=== PATIENT | female | born 1955 | race Caucasian/White ===

== ENCOUNTER 2016-08-11 19:57 | Emergency (ER) | payer OTHER ==
--- NOTE | 2016-08-11 20:07 | ED ORDER SUMMARY ---
..... Patient: DAWNA FRAUSTO OrderSheet [facility] VisitID: [id number] [place] [address] 60y, F Registration Date/Time: 08/11/2016 ORDER SHEET Weight: 52.1 kg (stated) Allergies: Codeine GENERAL ORDERS: CBC w Diff Urgent (20:09 08/11/2016 EKoroleva P.A.-C) (20:09 HSoule) MEDICATION ORDERS: Glucagon IV 1 mg (NOW) (20:04 08/11/2016 EKoroleva P.A.-C) (Ack 20:09 HSoule) (20:16 HSoule) IV FLUIDS: IV NS : initial bolus 1000 mL (1000 mL/hr), then 10 mL/hr for X1 (NOW); Manjeet (20:04 08/11/2016 EKoroleva P.A.-C) (Ack 20:09 HSoule) (20:16 HSoule) Zofran IV 4 mg (NOW) (20:16 08/11/2016 EKoroleva P.A.-C) (Ack 20:17 HSoule) (20:22 Pamela R.N.) ORDER SHEET NOTES: [Electronically signed by Brianna Stoll P.A.-C (20:25 08/11/2016)] [Electronically signed by Enzo Rehman R.N. (20:38 08/11/2016)] [Electronically locked/signed by Enzo Rehman R.N. (20:38 08/11/2016)]
--- NOTE | 2016-08-11 20:07 | ED ORDER SUMMARY ---
..... Patient: DAWNA FRAUSTO OrderSheet [facility] VisitID: [id number] [place] [address] 60y, F Registration Date/Time: 08/11/2016 ORDER SHEET Weight: 52.1 kg (stated) Allergies: Codeine GENERAL ORDERS: CBC w Diff Urgent (20:09 08/11/2016 EKoroleva P.A.-C) (20:09 HSoule) MEDICATION ORDERS: Glucagon IV 1 mg (NOW) (20:04 08/11/2016 EKoroleva P.A.-C) (Ack 20:09 HSoule) (20:16 HSoule) IV FLUIDS: IV NS : initial bolus 1000 mL (1000 mL/hr), then 10 mL/hr for X1 (NOW); Manjeet (20:04 08/11/2016 EKoroleva P.A.-C) (Ack 20:09 HSoule) (20:16 HSoule) Zofran IV 4 mg (NOW) (20:16 08/11/2016 EKoroleva P.A.-C) (Ack 20:17 HSoule) (20:22 Pamela R.N.) ORDER SHEET NOTES: [Electronically signed by Brianna Stoll P.A.-C (20:25 08/11/2016)] [Electronically signed by Enzo Rehman R.N. (20:38 08/11/2016)] [Electronically locked/signed by Enzo Rehman R.N. (20:38 08/11/2016)]
--- NOTE | 2016-08-11 20:07 | ED NURSING NOTES ---
Clinical Report - Nurses [facility] [address] [place] [address] 08/11/2016 19:58 [id number] Triage time 20:00 Aug 11 2016. Acuity: LEVEL 3. Chief Complaint: (Steak stuck in throat). 20:05 08/11/16. SEPSIS SCREEN: Sepsis Screen: negative. Negative (no infection suspected/documented). MERE COMA SCORE: [place] Coma Scale: 15- eyes open spontaneously (4); best verbal response- oriented x 4 (5); best motor response- obeys commands (6). --20:05 Cara Linn 20:00 08/11/16. HR: 117. RR: 24. O2 saturation: 94% on room air. Temp: 98.4 F (oral). Pain level now: 0/10. --20:05 Cara Linn 20:06 08/11/16. BP: 130/90. --20:09 Cara Linn. Weight: 52.1 kg stated. Height/Length: 64 inches Per Patient. BMI: 19.7. --20:01 Cara Linn. Medications Paxil Oral 40 mg, daily. Temazepam Oral (Capsule 22.5 mg) 1 capsule, at bedtime. TraZODone HCl Oral 150 mg, at bedtime. --20:02 Cara Linn. Allergies Codeine.(nausea) --20:02 Cara Linn. History Arrived by private vehicle. Historian: patient. Accompanied by friend. This started just prior to arrival. ( Patient reports eating steak and having a piece get stuck in her throat. She states she cannot get it to go down despite drinking fluids and gagging.). PAST MEDICAL HX: Immunizations: up-to-date. The patient is post-menopausal. SOCIAL HX: Heavy tobacco smoker (cigarette)- 1 pack per day. Occasional alcohol use. No drug use. No infectious disease exposure. ABUSE ASSESSMENT: No report of abuse. FALL RISK ASSESSMENT: Fall risk assessment completed. No fall risk identified. NUTRITIONAL RISK ASSESSMENT: The nutritional risk assessment revealed no deficiencies. FUNCTIONAL ASSESSMENT: Functional assessment: no impairments noted. LEARNING NEEDS ASSESSMENT: The learning needs assessment revealed no barriers. SKIN INTEGRITY ASSESSMENT: Skin integrity risk assessment completed. No skin integrity risk identified. --20:05 Cara Linn. PROBLEMS: Suicidal Ideation. Mental Illness. Gastritis. Immunizations. Abdominal Pain. COPD - Chronic Obstructive Pulmonary Disease. Endometriosis. Anxiety Reaction. Depression. --20:02 Cara Linn. ADDITIONAL SURGERIES: Cholecystectomy. Fibroids. Hernia Repair. Hysterectomy. Oophorectomy. Previous Abdominal Surgery. Salpingectomy. --20:02 Cara Linn. Interventions ID band on patient. To treatment room. --20:05 Cara Linn. PHYSICAL ASSESSMENT Ambulatory to room. Patient gowned. GENERAL / NEURO / PSYCH: Alert. Oriented X 4. HEENT: Mucous membranes are pink. RESPIRATORY: Respirations not labored. ( gagging but maintaining airway). CVS: Cardiac rhythm: sinus tachycardia. GI / : Abdomen soft and nontender. SKIN: Skin is warm and dry. --20:06 Cara Linn. NURSING PROGRESS NOTES Pulse oximeter and NIBP monitor placed on patient; monitor alarms on. Patient gowned. Reassurance given. Two patient identifiers checked. Call light placed in reach. Side rails up x 1. Bed placed in lowest position. Brakes of bed on. Patient ready for evaluation- chart flagged and ED physician notified. --20: Cara Linn 20:08/11/2016 Site #1 started via IV in the left forearm with an 20g angiocath, with aseptic technique and good blood return; one attempt. Blood drawn: rainbow set. Labeled in the presence of the patient and sent to the lab. Saline lock flushed with 10 mL saline. --20:16 Cara Linn 20:08/11/2016 Glucagon IVP 1 mg given over 1 minute(s) via site #1. Allergies verified and confirmed 5 rights. IV patency established. IV site checked: no pain, redness, or swelling. IV flushed thoroughly pre- and post-medication administration. IVP given by RN. --20:16 Cara Linn 20:08/11/2016 Started bag #1 1000 mL IV Fluids IV NS (Saline); at 1000 mL/hr over 1 hour(s) via site #1. Allergies verified and confirmed 5 rights. IV patency established. IV site checked: no pain, redness, or swelling. IV flushed thoroughly pre- and post-medication administration. --20:16 Cara Linn ( Surgeon at bedside, Patient updated about plan of care). --20:17 Cara Linn ( Patient vomited up steak, provider made aware). --20:18 Cara Linn 20:21 08/11/2016 Zofran (Ondansetron HCl) IVP 4 mg given over 1 minute(s) via site #1. Allergies verified and confirmed 5 rights. IV patency established. IV site checked: no pain, redness, or swelling. IV flushed thoroughly pre- and post-medication administration. --20:22 Carlos Ku R.N. DISPOSITION / DISCHARGE 20:25 08/11/2016 Site #1 removed upon discharge. Catheter intact. Bandaid applied. --20:25 Enzo Rehman R.N. Departure time: 20:37. Condition at departure: improved. ( Pt vomited the foreign body into the trash can.). No learning barriers present. Reviewed medication(s) side effects, precautions, dosing and course information. Prescription(s) given to the patient (zofran). Written instructions provided in Faroese. The patient was discharged by the physician phlebotomy lab assistant. She was discharged home and accompanied by scientific software engineer. She left the Emergency Department ambulatory and via private vehicle. Cotton Tier driving. --20:38 Enzo Rehman R.N. 20:25 08/11/16. BP: 118/95. HR: 82. RR: 15. O2 saturation: 98%. Pain level now 0/10. --20:38 Enzo Rehman R.N. Locked/Released at 08/11/2016 20:38 by Enzo Rehman R.N.
--- NOTE | 2016-08-11 20:07 | ED NURSING NOTES ---
Clinical Report - Nurses [facility] [address] [place] [address] 08/11/2016 19:58 [id number] TRI[facility] Triage time 20:00 Aug 11 2016. Acuity: LEVEL 3. Chief Complaint: (Steak stuck in throat). 20:05 08/11/16. SEPSIS SCREEN: Sepsis Screen: negative. Negative (no infection suspected/documented). MERE COMA SCORE: [place] Coma Scale: 15- eyes open spontaneously (4); best verbal response- oriented x 4 (5); best motor response- obeys commands (6). --20:05 Cara Linn 20:00 08/11/16. HR: 117. RR: 24. O2 saturation: 94% on room air. Temp: 98.4 F (oral). Pain level now: 0/10. --20:05 Cara Linn 20:06 08/11/16. BP: 130/90. --20:09 Cara Linn. Weight: 52.1 kg stated. Height/Length: 64 inches Per Patient. BMI: 19.7. --20:01 Cara Linn. Medications Paxil Oral 40 mg, daily. Temazepam Oral (Capsule 22.5 mg) 1 capsule, at bedtime. TraZODone HCl Oral 150 mg, at bedtime. --20:02 Cara Linn. Allergies Codeine.(nausea) --20:02 Cara Linn. History Arrived by private vehicle. Historian: patient. Accompanied by friend. This started just prior to arrival. ( Patient reports eating steak and having a piece get stuck in her throat. She states she cannot get it to go down despite drinking fluids and gagging.). PAST MEDICAL HX: Immunizations: up-to-date. The patient is post-menopausal. SOCIAL HX: Heavy tobacco smoker (cigarette)- 1 pack per day. Occasional alcohol use. No drug use. No infectious disease exposure. ABUSE ASSESSMENT: No report of abuse. FALL RISK ASSESSMENT: Fall risk assessment completed. No fall risk identified. NUTRITIONAL RISK ASSESSMENT: The nutritional risk assessment revealed no deficiencies. FUNCTIONAL ASSESSMENT: Functional assessment: no impairments noted. LEARNING NEEDS ASSESSMENT: The learning needs assessment revealed no barriers. SKIN INTEGRITY ASSESSMENT: Skin integrity risk assessment completed. No skin integrity risk identified. --20:05 Cara Linn. PROBLEMS: Suicidal Ideation. Mental Illness. Gastritis. Immunizations. Abdominal Pain. COPD - Chronic Obstructive Pulmonary Disease. Endometriosis. Anxiety Reaction. Depression. --20:02 Cara Linn. ADDITIONAL SURGERIES: Cholecystectomy. Fibroids. Hernia Repair. Hysterectomy. Oophorectomy. Previous Abdominal Surgery. Salpingectomy. --20:02 Cara Linn. Interventions ID band on patient. To treatment room. --20:05 Cara Linn. PHYSICAL ASSESSMENT Ambulatory to room. Patient gowned. GENERAL / NEURO / PSYCH: Alert. Oriented X 4. HEENT: Mucous membranes are pink. RESPIRATORY: Respirations not labored. ( gagging but maintaining airway). CVS: Cardiac rhythm: sinus tachycardia. GI / : Abdomen soft and nontender. SKIN: Skin is warm and dry. --20:06 Cara Linn. NURSING PROGRESS NOTES Pulse oximeter and NIBP monitor placed on patient; monitor alarms on. Patient gowned. Reassurance given. Two patient identifiers checked. Call light placed in reach. Side rails up x 1. Bed placed in lowest position. Brakes of bed on. Patient ready for evaluation- chart flagged and ED physician notified. --20: Cara Linn 20:08/11/2016 Site #1 started via IV in the left forearm with an 20g angiocath, with aseptic technique and good blood return; one attempt. Blood drawn: rainbow set. Labeled in the presence of the patient and sent to the lab. Saline lock flushed with 10 mL saline. --20:16 Cara Linn 20:08/11/2016 Glucagon IVP 1 mg given over 1 minute(s) via site #1. Allergies verified and confirmed 5 rights. IV patency established. IV site checked: no pain, redness, or swelling. IV flushed thoroughly pre- and post-medication administration. IVP given by RN. --20:16 Cara Linn 20:08/11/2016 Started bag #1 1000 mL IV Fluids IV NS (Saline); at 1000 mL/hr over 1 hour(s) via site #1. Allergies verified and confirmed 5 rights. IV patency established. IV site checked: no pain, redness, or swelling. IV flushed thoroughly pre- and post-medication administration. --20:16 Cara Linn ( Surgeon at bedside, Patient updated about plan of care). --20:17 Cara Linn ( Patient vomited up steak, provider made aware). --20:18 Cara Linn 20:21 08/11/2016 Zofran (Ondansetron HCl) IVP 4 mg given over 1 minute(s) via site #1. Allergies verified and confirmed 5 rights. IV patency established. IV site checked: no pain, redness, or swelling. IV flushed thoroughly pre- and post-medication administration. --20:22 Carlos Ku R.N. DISPOSITION / DISCHARGE 20:25 08/11/2016 Site #1 removed upon discharge. Catheter intact. Bandaid applied. --20:25 Enzo Rehman R.N. Departure time: 20:37. Condition at departure: improved. ( Pt vomited the foreign body into the trash can.). No learning barriers present. Reviewed medication(s) side effects, precautions, dosing and course information. Prescription(s) given to the patient (zofran). Written instructions provided in Luxembourgish. The patient was discharged by the physician assistant project manager. She was discharged home and accompanied by bundle tier and labeler. She left the Emergency Department ambulatory and via private vehicle. Wireless Sales Associate driving. --20:38 Enzo Rehman R.N. 20:25 08/11/16. BP: 118/95. HR: 82. RR: 15. O2 saturation: 98%. Pain level now 0/10. --20:38 Enzo Rehman R.N. Locked/Released at 08/11/2016 20:38 by Enzo Rehman R.N.
--- NOTE | 2016-08-11 20:18 | ED CLINICAL REPORT ---
Clinical Report - Physicians/Mid Levels [facility] [address] [place] [address] 08/11/2016 19:58 Patient: DAWNA FRAUSTO Arrived- By private vehicle. Historian- patient. HISTORY OF PRESENT ILLNESS Chief Complaint: FOREIGN BODY SENSATION IN THROAT. This started just prior to arrival. Pain described as mild. (prior to arrival patient ate meat, and has an fb sensation. NO h/o similar. Unable to swallow. Spitting up. Pt with recent sore throat/ mild cough, cold like sx.). REVIEW OF SYSTEMS No cough, difficulty breathing, nausea or abdominal pain. All systems otherwise negative, except as recorded above. SOCIAL HISTORY Smoker- current status unknown. Alcohol use. No drug use. ADDITIONAL NOTES The nursing notes have been reviewed. PHYSICAL EXAM Vital Signs: 08/11/2016 20:06 BP: 130/90. 08/11/2016 20:00 HR: 117. RR: 24. O2 saturation: 94%. Temp: 98.4 F. Pain level now: 0/10. Appearance: Alert. (spitting saliva up in the er). ENT: Lips normal. No trismus present. Uvula midline. No dental decay. Neck: Trachea midline. No thyromegaly. CVS: Normal heart rate and rhythm. Heart sounds normal. Respiratory: No respiratory distress. Breath sounds normal. Skin: Normal skin color. No rash. LABS, X-RAYS, AND EKG Laboratory Tests: CBC w Diff: (ADOLFO: 08/11/2016 20:10) ( MsgRcvd 08/11/2016 20:17) Final results Test Result Flag Units (Reference) WHITE BLOOD COUNT 8.0 K/uL (4.5-11.5) RED BLOOD COUNT 4.06 M/uL (4.00-5.20) HEMOGLOBIN 14.7 gm/dL (12.0-16.0) HEMATOCRIT 42.2 % (36.0-46.0) MEAN CELL VOLUME 104 H fL (80-100) MEAN CORPUSCULAR HGB 36 H pg (26-34) MEAN CORPUSCULAR HGB CONC 35 g/dL (31-37) RED CELL DISTRIBUTION WIDTH 14.3 % (11.6-14.8) PLATELET COUNT 345 K/uL (150-400) NEUTROPHIL % 64.9 % (50-75) LYMPH % 27.6 % (25-40) MONO % 6.2 % (3-14) EOSINOPHIL % 1.0 % (0-4) BASOPHIL % 0.3 % (0-2) . PROGRESS AND PROCEDURES Course of Care: Jovanna in ER reports will scope patient, will admit to his services to the OR. Pt will receive IV glucagon IV 1 mg, pt with emesis in ER with meat out of her esophagus, now resolved fb sensation, and able to tolerate po. Pt for clear liquid diet at home, stable. To f/u outpatient. Patient is stable. Symptoms better. Patient/family counseled. Disposition: Discharged. CLINICAL IMPRESSION Esophageal foreign body: food- removed. INSTRUCTIONS Prescription Medications: Zofran (orally disintegrating tablets) 4 mg: take 1 orally every 6 hours for 2 days as needed for nausea. Dispense five (5). No refill. Substitution is permissible. Follow-up with: Reymundo Nugent MD, General Surgeon, , [facility], [address] [place] [address] (Electronically signed by Brianna Stoll P.AGabriella 08/11/2016 20:25) Addenda for DAWNA FRAUSTO VisitID: [id number] Date: 08/11/2016 08/11/2016 20:39 Started bag #1 1000 mL IV Fluids IV NS (Saline); at 1000 mL/hr over 1 hour(s) via site #1. Allergies verified and confirmed 5 rights. IV patency established. IV site checked: no pain, redness, or swelling. IV flushed thoroughly pre- and post-medication administration. IV Fluids IV NS Discontinued: bag #1 upon discharge. Total amount infused: 100 mL. IV patency established. IV site checked: no pain, redness, or swelling. IV flushed thoroughly. (Electronically signed by Enzo Rehman R.N. - 08/11/2016 20:39)
--- NOTE | 2016-08-11 20:18 | ED CLINICAL REPORT ---
Clinical Report - Physicians/Mid Levels [facility] [address] [place] [address] 08/11/2016 19:58 Patient: DAWNA FRAUSTO Arrived- By private vehicle. Historian- patient. HISTORY OF PRESENT ILLNESS Chief Complaint: FOREIGN BODY SENSATION IN THROAT. This started just prior to arrival. Pain described as mild. (prior to arrival patient ate meat, and has an fb sensation. NO h/o similar. Unable to swallow. Spitting up. Pt with recent sore throat/ mild cough, cold like sx.). REVIEW OF SYSTEMS No cough, difficulty breathing, nausea or abdominal pain. All systems otherwise negative, except as recorded above. SOCIAL HISTORY Smoker- current status unknown. Alcohol use. No drug use. ADDITIONAL NOTES The nursing notes have been reviewed. PHYSICAL EXAM Vital Signs: 08/11/2016 20:06 BP: 130/90. 08/11/2016 20:00 HR: 117. RR: 24. O2 saturation: 94%. Temp: 98.4 F. Pain level now: 0/10. Appearance: Alert. (spitting saliva up in the er). ENT: Lips normal. No trismus present. Uvula midline. No dental decay. Neck: Trachea midline. No thyromegaly. CVS: Normal heart rate and rhythm. Heart sounds normal. Respiratory: No respiratory distress. Breath sounds normal. Skin: Normal skin color. No rash. LABS, X-RAYS, AND EKG Laboratory Tests: CBC w Diff: (ADOLFO: 08/11/2016 20:10) ( MsgRcvd 08/11/2016 20:17) Final results Test Result Flag Units (Reference) WHITE BLOOD COUNT 8.0 K/uL (4.5-11.5) RED BLOOD COUNT 4.06 M/uL (4.00-5.20) HEMOGLOBIN 14.7 gm/dL (12.0-16.0) HEMATOCRIT 42.2 % (36.0-46.0) MEAN CELL VOLUME 104 H fL (80-100) MEAN CORPUSCULAR HGB 36 H pg (26-34) MEAN CORPUSCULAR HGB CONC 35 g/dL (31-37) RED CELL DISTRIBUTION WIDTH 14.3 % (11.6-14.8) PLATELET COUNT 345 K/uL (150-400) NEUTROPHIL % 64.9 % (50-75) LYMPH % 27.6 % (25-40) MONO % 6.2 % (3-14) EOSINOPHIL % 1.0 % (0-4) BASOPHIL % 0.3 % (0-2) . PROGRESS AND PROCEDURES Course of Care: Jovanna in ER reports will scope patient, will admit to his services to the OR. Pt will receive IV glucagon IV 1 mg, pt with emesis in ER with meat out of her esophagus, now resolved fb sensation, and able to tolerate po. Pt for clear liquid diet at home, stable. To f/u outpatient. Patient is stable. Symptoms better. Patient/family counseled. Disposition: Discharged. CLINICAL IMPRESSION Esophageal foreign body: food- removed. INSTRUCTIONS Prescription Medications: Zofran (orally disintegrating tablets) 4 mg: take 1 orally every 6 hours for 2 days as needed for nausea. Dispense five (5). No refill. Substitution is permissible. Follow-up with: Reymundo Nugent MD, General Surgeon, , [facility], [address] [place] [address] (Electronically signed by Brianna Stoll P.AGabriella 08/11/2016 20:25) Addenda for DAWNA FRAUSTO VisitID: [id number] Date: 08/11/2016 08/11/2016 20:39 Started bag #1 1000 mL IV Fluids IV NS (Saline); at 1000 mL/hr over 1 hour(s) via site #1. Allergies verified and confirmed 5 rights. IV patency established. IV site checked: no pain, redness, or swelling. IV flushed thoroughly pre- and post-medication administration. IV Fluids IV NS Discontinued: bag #1 upon discharge. Total amount infused: 100 mL. IV patency established. IV site checked: no pain, redness, or swelling. IV flushed thoroughly. (Electronically signed by Enzo Rehman R.N. - 08/11/2016 20:39)
--- NOTE | 2016-08-11 20:39 | ED MED RECONCILIATION SUMMARY ---
Patient: DAWNA FRAUSTO Medication Reconciliation Report [facility] VisitID: [id number] [place] [address] 60y, F Registration Date/Time: 08/11/2016 Weight: 52.1 kg Height/Length: 64 in. BMI: 19.7 ALLERGIES: Codeine The patient's Home Medications are listed below: THE FOLLOWING MEDICATIONS NEED TO BE RECONCILED: Paxil Oral 40 mg, daily Temazepam Oral (22.5 mg) 1 capsule, at bedtime TraZODone HCl Oral 150 mg, at bedtime The source(s) of the original Home Medication information: Not obtained. The following Medications were given to the patient in the Emergency Department: Glucagon [IVP] IVP 1 mg, administered: 08/11/2016 8:16:00 PM IV NS IV Fluids bolus 0, then 1000 mL/hr, administered: 08/11/2016 8:16:00 PM Zofran [IVP] IVP 4 mg, administered: 08/11/2016 8:21:00 PM The following Medications were prescribed to the patient: Zofran (orally disintegrating tablets) 4 mg: take 1 orally every 6 hours for 2 days as needed for nausea. Dispense five (5). No refill. Substitution is permissible. -- Brianna Stoll P.A.-C
--- NOTE | 2016-08-11 20:39 | ED MED RECONCILIATION SUMMARY ---
Patient: DAWNA FRAUSTO Medication Reconciliation Report [facility] VisitID: [id number] [place] [address] 60y, F Registration Date/Time: 08/11/2016 Weight: 52.1 kg Height/Length: 64 in. BMI: 19.7 ALLERGIES: Codeine The patient's Home Medications are listed below: THE FOLLOWING MEDICATIONS NEED TO BE RECONCILED: Paxil Oral 40 mg, daily Temazepam Oral (22.5 mg) 1 capsule, at bedtime TraZODone HCl Oral 150 mg, at bedtime The source(s) of the original Home Medication information: Not obtained. The following Medications were given to the patient in the Emergency Department: Glucagon [IVP] IVP 1 mg, administered: 08/11/2016 8:16:00 PM IV NS IV Fluids bolus 0, then 1000 mL/hr, administered: 08/11/2016 8:16:00 PM Zofran [IVP] IVP 4 mg, administered: 08/11/2016 8:21:00 PM The following Medications were prescribed to the patient: Zofran (orally disintegrating tablets) 4 mg: take 1 orally every 6 hours for 2 days as needed for nausea. Dispense five (5). No refill. Substitution is permissible. -- Brianna Stoll P.A.-C
--- NOTE | 2016-08-11 20:39 | ED MAR SUMMARY ---
..... Medication Administration Record Merged With [facility] [address] [place] [address] Patient: DAWNA FRAUSTO Visit ID: [id number] 60y, F Weight: 52.1 kg Height/Length: 64 in BMI: 19.7 ALLERGIES: Codeine Given 20:16 08/11/2016 Cara Linn, Medication Administered: GLUCAGON [IVP], Dose: 1 mg IVP over 1 minute(s), Site: #1 left forearm. Medication Ordered: Glucagon IV 1 mg (NOW). Start 20:16 08/11/2016 Cara Linn,, Stop 20:39 08/11/2016 Enzo Rehman RAnthony. Medication Administered: IV NS (SALINE), Dose: IV Fluids over 1 hour(s), Rate: 1000 mL/hr, Dispensed: 1000 mL bag, Site: #1 left forearm. Medication Ordered: IV NS : initial bolus 1000 mL (1000 mL/hr), then 10 mL/hr for X1 (NOW); Manjeet. Given 20:21 08/11/2016 Carlos Ku RAnthony. Medication Administered: ZOFRAN [IVP] (ONDANSETRON HCL), Dose: 4 mg IVP over 1 minute(s), Site: #1 left forearm. Medication Ordered: Zofran IV 4 mg (NOW).
--- NOTE | 2016-08-11 20:39 | ED MAR SUMMARY ---
..... Medication Administration Record Merged With [facility] [address] [place] [address] Patient: DAWNA FRAUSTO Visit ID: [id number] 60y, F Weight: 52.1 kg Height/Length: 64 in BMI: 19.7 ALLERGIES: Codeine Given 20:16 08/11/2016 Cara Linn, Medication Administered: GLUCAGON [IVP], Dose: 1 mg IVP over 1 minute(s), Site: #1 left forearm. Medication Ordered: Glucagon IV 1 mg (NOW). Start 20:16 08/11/2016 Cara Linn,, Stop 20:39 08/11/2016 Enzo Rehman RAnthony. Medication Administered: IV NS (SALINE), Dose: IV Fluids over 1 hour(s), Rate: 1000 mL/hr, Dispensed: 1000 mL bag, Site: #1 left forearm. Medication Ordered: IV NS : initial bolus 1000 mL (1000 mL/hr), then 10 mL/hr for X1 (NOW); Manjeet. Given 20:21 08/11/2016 Carlos Ku RAnthony. Medication Administered: ZOFRAN [IVP] (ONDANSETRON HCL), Dose: 4 mg IVP over 1 minute(s), Site: #1 left forearm. Medication Ordered: Zofran IV 4 mg (NOW).
--- NOTE | 2016-08-11 20:39 | ED DISCHARGE INSTRUCTIONS ---
Patient: DAWNA FRAUSTO General Instructions [facility] VisitID: [id number] Chris Baca[place] [phone] 60y, F Registration Date/Time: 08/11/2016 Esophageal foreign body: food- removed. INSTRUCTIONS Prescription Medications: Zofran (orally disintegrating tablets) 4 mg: take 1 orally every 6 hours for 2 days as needed for nausea. Dispense five (5). No refill. Substitution is permissible. Follow-up with: Reymundo Nugent MD, General Surgeon, , [facility], [address] [place] [address] ADDITIONAL INFORMATION Esophageal Blockage, Resolved The esophagus is the passage that carries food from the mouth to the stomach. You had a blockage in the esophagus. This can happen after swallowing a large piece of food, taking a large pill or swallowing foreign objects. If this is a recurring problem, it can be a sign of disease in the esophagus such as inflammation or scarring. If you did not require a special procedure (endoscopy) today to treat your condition, further testing will be needed to evaluate this problem. The blockage has cleared. You should be able to swallow normally again. Home Care: For the next 24 hours you may drink liquids and eat soft foods. If you were given IV medicine today for an endoscopy procedure, you may be drowsy for the next 4-[address] or operate dangerous equipment until you feel alert again. If your blockage was from food, be sure to cut solid food into small pieces before putting it into your mouth. Chew all foods well before swallowing. If your blockage was from an mhax-ylb-rfwmtvd pill (such as a vitamin), avoid this size pill in the future. If it was from a prescription medicine, ask your doctor for another type of medicine to replace this. Follow Up with your doctor as advised. If you have further problems, contact your doctor or this facility for advice. If this is a recurring problem, contact your doctor to schedule an endoscopy (to look inside the esophagus with a small camera on the end of a tube). Get Prompt Medical Attention if any of the following occur: Chest pain or shortness of breath Unable to swallow Vomiting blood (red or black) Blood in your stool (dark red or black color) Fever of 100.4F (38C) or higher, or as directed by your healthcare provider Clear Liquid Diet Clear liquids are any liquid that you can see through as well as those that are very easy to digest. This is used while the body is recovering from irritation or infection of the stomach or intestinal tract. It may also be used before special procedures or surgery. This diet is to be used no more than three days. You may include the following items. Adults Adults should drink a total of 23 quarts of liquid per day. It may be easier to drink small frequent servings rather than a few large ones. Liquids can include: Fruit juices.Strained orange juice or lemonade (no pulp), apple, grape and cranberry juice, clear fruit drinks, sports drinks Beverages.Sport drinks, sodas, mineral water (plain or flavored), tea, black coffee, liquid gelatin (add twice the recommended amount of water) Soups.Clear broth, consomm, bouillon Desserts.Plain gelatin, popsicles, fruit juice bars Children Over 2 years old The following liquids are acceptable for children over age 2: Fruit juices.Strained orange juice or lemonade (no pulp), apple, grape and cranberry juice, clear fruit drinks Beverages. Sports drinks, sodas, mineral water (plain or flavored), tea, liquid gelatin (add twice the recommended amount of water) Soups. Clear broth, consomm, bouillon Desserts. Plain gelatin, popsicles, fruit juice bars Children under 2 years old Oral rehydration fluids such are available at drug stores and most grocery stores without a prescription. Ondansetron Hydrochloride Oral tablet What is this medicine? ONDANSETRON (on DAVID se kavin) is used to treat nausea and vomiting caused by chemotherapy. It is also used to prevent or treat nausea and vomiting after surgery. How should I use this medicine? Take this medicine by mouth with a glass of water. Follow the directions on your prescription label. Take your doses at regular intervals. Do not take your medicine more often than directed. Talk to your sap data analyst regarding the use of this medicine in children. Special care may be needed. What side effects may I notice from receiving this medicine? Side effects that you should report to your doctor or health lawn care worker as soon as possible: allergic reactions like skin rash, itching or hives, swelling of the face, lips or tongue breathing problems dizziness fast or irregular heartbeat feeling faint or lightheaded, falls fever and chills swelling of the hands or feet tightness in the chest Side effects that usually do not require medical attention (report to your doctor or health lawn care worker if they continue or are bothersome): constipation or diarrhea headache What may interact with this medicine? Do not take this medicine with any of the following medications: -apomorphine -cisapride -dofetilide -dronedarone -pimozide -thioridazine -ziprasidone This medicine may also interact with the following medications: -carbamazepine -phenytoin -rifampicin -tramadol -other medicines that prolong the QT interval (cause an abnormal heart rhythm) What if I miss a dose? If you miss a dose, take it as soon as you can. If it is almost time for your next dose, take only that dose. Do not take double or extra doses. Where should I keep my medicine? Keep out of the reach of children. Store between 2 and 30 degrees C (36 and 86 degrees F). Throw away any unused medicine after the expiration date. What should I tell my health care provider before I take this medicine? They need to know if you have any of these conditions: heart disease history of irregular heartbeat liver disease low levels of magnesium or potassium in the blood an unusual or allergic reaction to ondansetron, granisetron, other medicines, foods, dyes, or preservatives or trying to get breast-feeding What should I watch for while using this medicine? Check with your doctor or health lawn care worker right away if you have any sign of an allergic reaction. You have been given the following additional information: Esophageal Foreign Body, Resolved Diet, Clear Liquid Ondansetron Hydrochloride Oral tablet (Electronically signed by Brianna Stoll P.A.-C 08/11/2016 20:25)
--- NOTE | 2016-08-11 20:39 | ED DISCHARGE INSTRUCTIONS ---
Patient: DAWNA FRAUSTO General Instructions [facility] VisitID: [id number] Chris BacaMary [place]ille [phone] 60y, F Registration Date/Time: 08/11/2016 Esophageal foreign body: food- removed. INSTRUCTIONS Prescription Medications: Zofran (orally disintegrating tablets) 4 mg: take 1 orally every 6 hours for 2 days as needed for nausea. Dispense five (5). No refill. Substitution is permissible. Follow-up with: Reymundo Nugent MD, General Surgeon, , [facility], [address] [place] [address] ADDITIONAL INFORMATION Esophageal Blockage, Resolved The esophagus is the passage that carries food from the mouth to the stomach. You had a blockage in the esophagus. This can happen after swallowing a large piece of food, taking a large pill or swallowing foreign objects. If this is a recurring problem, it can be a sign of disease in the esophagus such as inflammation or scarring. If you did not require a special procedure (endoscopy) today to treat your condition, further testing will be needed to evaluate this problem. The blockage has cleared. You should be able to swallow normally again. Home Care: For the next 24 hours you may drink liquids and eat soft foods. If you were given IV medicine today for an endoscopy procedure, you may be drowsy for the next 4-[address] or operate dangerous equipment until you feel alert again. If your blockage was from food, be sure to cut solid food into small pieces before putting it into your mouth. Chew all foods well before swallowing. If your blockage was from an oryv-ant-qjmqmjq pill (such as a vitamin), avoid this size pill in the future. If it was from a prescription medicine, ask your doctor for another type of medicine to replace this. Follow Up with your doctor as advised. If you have further problems, contact your doctor or this facility for advice. If this is a recurring problem, contact your doctor to schedule an endoscopy (to look inside the esophagus with a small camera on the end of a tube). Get Prompt Medical Attention if any of the following occur: Chest pain or shortness of breath Unable to swallow Vomiting blood (red or black) Blood in your stool (dark red or black color) Fever of 100.4F (38C) or higher, or as directed by your healthcare provider Clear Liquid Diet Clear liquids are any liquid that you can see through as well as those that are very easy to digest. This is used while the body is recovering from irritation or infection of the stomach or intestinal tract. It may also be used before special procedures or surgery. This diet is to be used no more than three days. You may include the following items. Adults Adults should drink a total of 23 quarts of liquid per day. It may be easier to drink small frequent servings rather than a few large ones. Liquids can include: Fruit juices.Strained orange juice or lemonade (no pulp), apple, grape and cranberry juice, clear fruit drinks, sports drinks Beverages.Sport drinks, sodas, mineral water (plain or flavored), tea, black coffee, liquid gelatin (add twice the recommended amount of water) Soups.Clear broth, consomm, bouillon Desserts.Plain gelatin, popsicles, fruit juice bars Children Over 2 years old The following liquids are acceptable for children over age 2: Fruit juices.Strained orange juice or lemonade (no pulp), apple, grape and cranberry juice, clear fruit drinks Beverages. Sports drinks, sodas, mineral water (plain or flavored), tea, liquid gelatin (add twice the recommended amount of water) Soups. Clear broth, consomm, bouillon Desserts. Plain gelatin, popsicles, fruit juice bars Children under 2 years old Oral rehydration fluids such are available at drug stores and most grocery stores without a prescription. Ondansetron Hydrochloride Oral tablet What is this medicine? ONDANSETRON (on DAVID se kavin) is used to treat nausea and vomiting caused by chemotherapy. It is also used to prevent or treat nausea and vomiting after surgery. How should I use this medicine? Take this medicine by mouth with a glass of water. Follow the directions on your prescription label. Take your doses at regular intervals. Do not take your medicine more often than directed. Talk to your wood drill operator regarding the use of this medicine in children. Special care may be needed. What side effects may I notice from receiving this medicine? Side effects that you should report to your doctor or health hospice home care coordinator as soon as possible: allergic reactions like skin rash, itching or hives, swelling of the face, lips or tongue breathing problems dizziness fast or irregular heartbeat feeling faint or lightheaded, falls fever and chills swelling of the hands or feet tightness in the chest Side effects that usually do not require medical attention (report to your doctor or health hospice home care coordinator if they continue or are bothersome): constipation or diarrhea headache What may interact with this medicine? Do not take this medicine with any of the following medications: -apomorphine -cisapride -dofetilide -dronedarone -pimozide -thioridazine -ziprasidone This medicine may also interact with the following medications: -carbamazepine -phenytoin -rifampicin -tramadol -other medicines that prolong the QT interval (cause an abnormal heart rhythm) What if I miss a dose? If you miss a dose, take it as soon as you can. If it is almost time for your next dose, take only that dose. Do not take double or extra doses. Where should I keep my medicine? Keep out of the reach of children. Store between 2 and 30 degrees C (36 and 86 degrees F). Throw away any unused medicine after the expiration date. What should I tell my health care provider before I take this medicine? They need to know if you have any of these conditions: heart disease history of irregular heartbeat liver disease low levels of magnesium or potassium in the blood an unusual or allergic reaction to ondansetron, granisetron, other medicines, foods, dyes, or preservatives or trying to get breast-feeding What should I watch for while using this medicine? Check with your doctor or health hospice home care coordinator right away if you have any sign of an allergic reaction. You have been given the following additional information: Esophageal Foreign Body, Resolved Diet, Clear Liquid Ondansetron Hydrochloride Oral tablet (Electronically signed by Brianna Stoll P.A.-C 08/11/2016 20:25)
== END 2016-08-11 20:40 | disposition home or self-care (01) ==
LOC: ED SRH 19:57 → SDC SRH 20:09 → TRANS SRH 20:09 → ED SRH 20:40
DX: T18.108A Unspecified foreign body in esophagus causing other injury, initial encounter (principal); X58.XXXA Exposure to other specified factors, initial encounter; Y93.9 Activity, unspecified; Y92.9 Unspecified place or not applicable; Y99.9 Unspecified external cause status; J44.9 Chronic obstructive pulmonary disease, unspecified; F17.210 Nicotine dependence, cigarettes, uncomplicated; Z79.899 Other long term (current) drug therapy; Z88.5 Allergy status to narcotic agent
CPT/HCPCS: 95059